=== PATIENT | female | born 1960 | race Caucasian/White ===

== ENCOUNTER → 2017-08-08 | Outpatient (REF) ==
[~2017-08-08] MED LIST: DOCU10ELUD PO; EFFE150C PO; EFFE37.527 PO; FENT25DI22 TD; GABA300C2 PO; LIPI20TA PO; LISI10TA2 PO; NORC5TAB PO; PERCOCET PO; ROBA750T4 PO; SERO50TA PO; SOMA350T PO; VENL37TA PO; ZANA4TAB PO
--- NOTE | 2017-08-09 02:11 | REP ---
Clinical: Pain and disability. Technique: AP, lateral, coned-down views of the lumbosacral spine. Findings: Mild osteopenia is suggested along with moderate multilevel degenerative disc osteophyte complexes. Findings include anterior spurring, disc space narrowing and hypertrophic facet changes. Alignment and lordosis maintained. No acute fracture / compression injury or subluxation. Impression: Mild osteopenia and mild/moderate multilevel degenerative changes. No acute fracture / compression injury or subluxation. Signed by Floyd Jaramillo MD 08/09/2017 02:03 A
== END ==
LOC: M SMT 12:58
PROVIDERS: ATTEND Internal Medicine
DX: Z02.71 Encounter for disability determination (principal); M85.88 Other specified disorders of bone density and structure, other site; M51.37 Other intervertebral disc degeneration, lumbosacral region; M25.78 Osteophyte, vertebrae

== ENCOUNTER → 2017-09-10 | Outpatient (CLI) | payer OTHER ==
--- NOTE | 2017-09-10 10:12 | REPMRS ---
Digital Mammo Screening Bilat: September 10, 2017 - Exam #: [id number] Bilateral CC and MLO view(s) were taken. Technologist: Verito Johnson Technologist Prior study comparison: May 27, 2015, digital bilateral screening mammo, performed at [facility]. January 01, 2013, digital bilateral screening mammo, performed at [facility]. FINDINGS: There are scattered fibroglandular densities. There has been no change in the appearance of the mammogram from the prior studies. There is a mild amount of scattered fibroglandular density which is fairly symmetric. There is no interval development of dominant mass, architectural distortion, or clustered microcalcification suggestive of malignancy. ASSESSMENT: BI-RADS/ACR category 1 mammogram. Negative. Recommendation Routine screening mammogram in 1 year (for women over age 40). This mammogram was interpreted with the aid of an FDA-approved computer-aided dectection system. Electronically Signed By: Patrick David MD 09/10/17 [id number]
== END ==
LOC: M RAD 09:31
PROVIDERS: ATTEND Internal Medicine
DX: Z12.31 Encounter for screening mammogram for malignant neoplasm of breast (principal)

== ENCOUNTER → 2017-10-11 | Outpatient (CLI) | payer OTHER ==
--- NOTE | 2017-10-12 03:23 | REP ---
Clinical: Lung screening. History smoking. Comparison: none Technique: Axial low-dose noncontrast images from the thoracic inlet to the upper abdomen using lung screening technique. Findings: The lung condon are well-aerated. No consolidation, significant nodule or mass lesion is appreciated. No pleural effusion/reaction or pneumothorax. Tracheobronchial tree is patent. Mediastinum demonstrates mild atherosclerotic changes of the coronary arteries without cardiomegaly. Impression: Lung-RADS category I. No nodule or suspicious abnormality. Signed by Floyd Jaramillo MD 10/12/2017 03:15 A
== END ==
LOC: M RAD 09:38
PROVIDERS: ATTEND Internal Medicine
DX: Z12.2 Encounter for screening for malignant neoplasm of respiratory organs (principal); Z87.891 Personal history of nicotine dependence